=== PATIENT | male | born 1970 | race Caucasian/White ===

== ENCOUNTER 2021-07-14 13:40 | Emergency (ER) | payer SELFPAY ==
[2021-07-14 13:50] VITALS: BP 127/86; PULSE 99; RESP 20; TEMP 98
== END 2021-07-14 18:21 | disposition left against medical advice (07) ==
LOC: EC 13:40
DX: Z53.21 Procedure and treatment not carried out due to patient leaving prior to being seen by health care provider (principal)
CPT/HCPCS: 93005; 99499